=== PATIENT | male | born 1980 | race Caucasian/White ===

== ENCOUNTER 2017-09-25 19:43 | Emergency (ER) | payer SELFPAY ==
[~2017-09-25] VITALS: Ht 167.6 cm; Wt 72.6 kg
--- NOTE | 2017-09-25 19:44 | NUR ---
PT BROUGHT IN BY LAW ENFORCEMENT FOR PREBOOK
[2017-09-25 19:48] VITALS: BP 131/93
--- NOTE | 2017-09-25 20:45 | NUR ---
Patient discharged with v/s stable. Written and verbal after care instructions given and explained. Patient verbalized understanding. Ambulatory with steady gait. All questions addressed prior to discharge. Advised to follow up with PMD. Pt accompanied by PD.
[2017-09-25 20:47] VITALS: BP 125/90
== END 2017-09-25 20:45 ==
LOC: MED 19:43
DX: Z02.89 Encounter for other administrative examinations (principal)
CPT/HCPCS: 99283